=== PATIENT | male | born 1980 | race Two or more races ===

== ENCOUNTER → 2018-01-06 | Emergency (ER) | payer OTHER ==
[~2018-01-06] VITALS: Ht 188 cm; Wt 97.5 kg
== END | disposition home or self-care (01) ==
LOC: ER 18:24
DX: I82.401 Acute embolism and thrombosis of unspecified deep veins of right lower extremity (principal)

== ENCOUNTER → 2018-01-06 | Outpatient (CLI) | payer OTHER | END | disposition home or self-care (01) | LOC: NUCLEAR 15:01 | DX: I87.2 Venous insufficiency (chronic) (peripheral) (principal); M25.571 Pain in right ankle and joints of right foot ==

== ENCOUNTER 2023-08-14 22:23 | Emergency (ER) | payer OTHER ==
[~2023-08-14] VITALS: Ht 188 cm; Wt 105.2 kg
[2023-08-15] MEDS ORDERED: NIFEDIPINE 10 MG CAPSULE PO STA (00:33)
[2023-08-15] MEDS ORDERED: DEXAMETHASONE SODIUM PHOSPHATE 4 MG/ML VIAL IV STA (00:34)
[2023-08-15 00:57] LABS: HEMATOCRIT 43.3 % (39.0-48.0); HEMOGLOBIN 15.1 g/dL (13-16.00); MEAN CELL VOLUME 85.8 fL (80.0-100.00); MEAN CORPUSCULAR HEMOGLOBIN 29.9 pg (27.00-32.0); MEAN CORPUSCULAR HGB CONC 34.9 g/dl (32.0-36.0); PLATELET COUNT 221 K/uL (150-450); RED BLOOD COUNT 5.05 M/uL (4.00-6.00); RED CELL DISTRIBUTION WIDTH 13.5 % (11.5-14.5)
[2023-08-15 01:35] LABS: ALBUMIN 3.9 gm/dL (3.4-5.0); BILIRUBIN TOTAL 0.44 mg/dL (0.3-1.2); CREATININE SERUM 1.01 mg/dL (0.70-1.30); GFR 79.88; GLOBULINA 4.5 G/DL (2.4-3.5); POTASSIUM 3.61 mEq/L (3.5-5.1); TOTAL PROTEIN 8.4 gm/dL (6.4-8.2)
[2023-08-15] MEDS ORDERED: NIFE60TA3 PO (03:20)
== END 2023-08-15 03:27 ==
LOC: ER 22:23
PROVIDERS: General Practice
DX: G51.0 Bell's palsy (principal); I10 Essential (primary) hypertension